=== PATIENT | male | born 1975 | race Caucasian/White ===

== ENCOUNTER 2021-08-14 16:36 | Emergency (ER) | payer OTHER ==
[2021-08-14] MEDS ORDERED: Acetaminophen 325 MG Tab PO ONE (18:16)
[2021-08-14] MEDS ORDERED: Dexamethasone 6 MG TABLET PO ONE (18:16)
[2021-08-14] MEDS ORDERED: Albuterol 6.7 GM Inhaler INH ONE ×2 (18:16→21:50)
[2021-08-14] MEDS ORDERED: Dexamethasone 4 MG Tab ONE (18:47)
--- NOTE | 2021-08-14 19:37 | EDM.PDOC ---
ED HPI GENERAL MEDICAL PROBLEM - General Chief Complaint: Respiratory Problem Stated Complaint: COVID +/ TEMP 104 Time Seen by Provider: 08/14/21 17:42 Source of Information: Reports: Patient, RN Notes Reviewed History Limitations: Reports: No Limitations - History of Present Illness INITIAL COMMENTS - FREE TEXT/NARRATIVE: Patient is a 45-year-old male presenting to the emergency department complaints of Covid symptoms. He reports fever, chills, cough, congestion, nausea, diarrhea, and decreased appetite. He is approximately 7 days into his illness. He took ibuprofen around noon today. At that time his temp was 102.4. He then took a nap and upon waking temperature was 103, therefore he came to the ER. He has not taken any [id number] Tylenol. He denies any chronic medical conditions. He is scheduled to have a monoclonal antibody infusion tomorrow. Headache Pain Score (Numeric/FACES): 6 - Related Data Allergies Allergy/AdvReac Type Severity Reaction Status Date / Time No Known Allergies Allergy Verified 08/14/21 18:00 Home Meds: Home Meds dexAMETHasone [Decadron] 6 mg PO DAILY #4 tablet 08/14/21 [Rx] Past Medical History Psychiatric History: Reports: Addiction - Infectious Disease History Infectious Disease History: Reports: Novel Coronavirus Social & Family History - Family History Family Medical History: No Pertinent Family History - Tobacco Use Tobacco Use Status *Q: Current Every Day Tobacco User Years of Tobacco use: 35 Packs/Tins Daily: 0.5 - Caffeine Use Caffeine Use: Reports: Coffee - Recreational Drug Use Recreational Drug Use: Yes Drug Use in Last 12 Months: Yes Recreational Drug Type: Reports: Methamphetamine Recreational Drug Use Frequency: Not Used In Over 5 Months ED ROS GENERAL - Review of Systems Review Of Systems: See Below Constitutional: Reports: Fever, Chills, Fatigue, Decreased Appetite HEENT: Reports: Sinus Problem (Congestion) Respiratory: Reports: Shortness of Breath, Pleuritic Chest Pain, Cough Cardiovascular: Reports: No Symptoms Endocrine: Reports: No Symptoms GI/Abdominal: Reports: Abdominal Pain, Diarrhea, Decreased Appetite, Nausea : Reports: No Symptoms Musculoskeletal: Reports: No Symptoms Skin: Reports: No Symptoms Neurological: Reports: Headache Psychiatric: Reports: No Symptoms Hematologic/Lymphatic: Reports: No Symptoms Immunologic: Reports: No Symptoms ED EXAM, GENERAL - Physical Exam Exam: See Below Exam Limited By: No Limitations General Appearance: Alert, WD/WN, No Apparent Distress Respiratory/Chest: No Respiratory Distress, No Accessory Muscle Use, Chest Non- Tender, Wheezing (Scattered expiratory) Cardiovascular: Normal Peripheral Pulses, Regular Rate, Rhythm, No Edema, No Gallop, No JVD, No Murmur, No Rub GI/Abdominal: Normal Bowel Sounds, Soft, Non-Tender, No Organomegaly, No Distention, No Abnormal Bruit, No Mass Neurological: Alert, Oriented, CN II-XII Intact, Normal Cognition, Normal Gait, Normal Reflexes, No Motor/Sensory Deficits Psychiatric: Normal Affect, Normal Mood Skin Exam: Warm, Dry, Intact, Normal Color, No Rash #1 Interpretation EKG Date: 08/14/21 Time: 18:05 Rhythm: NSR Rate (Beats/Min): 100 [place]: Normal P-Wave: Present QRS: Normal ST-T: Normal QT: Normal Course - Vital Signs Last Recorded V/S: Last Vital Signs Temp 102.2 F H 08/14/21 18:54 Pulse 95 08/14/21 17:30 Resp 20 08/14/21 17:30 BP 146/59 H 08/14/21 17:30 Pulse Ox 96 08/14/21 21:55 - Orders/Labs/Meds Orders: Active Orders 24 hr Category Date Time Status RT Post Treatment Assessment [RC] Click to Edit Care 08/14/21 18:16 Active RT Pre-Treatment Assessment [RC] Click to Edit Care 08/14/21 18:16 Active Vital Signs [RC] Q15M Care 08/14/21 19:50 Active EPINEPHrine [Adrenalin] Med 08/14/21 19:50 Active 0.3 mg IM ASDIRECTED PRN Famotidine [Pepcid] Med 08/14/21 19:50 Active 20 mg IVPUSH ASDIRECTED PRN Sodium Chloride 0.9% [Saline Flush] Med 08/14/21 20:00 Active 30 ml FLUSH ASDIRECTED diphenhydrAMINE [Benadryl] Med 08/14/21 19:50 Active 50 mg IVPUSH ASDIRECTED PRN methylPREDNISolone Sod Succ [Solu-MEDROL] Med 08/14/21 19:50 Active 125 mg IVPUSH ASDIRECTED PRN Medication Orders Diphenhydramine HCl (Diphenhydramine 50 Mg/Ml Sdv) 50 mg IVPUSH ASDIRECTED PRN PRN Reason: hypersensitivity reaction Epinephrine HCl (Epinephrine 1 Mg/Ml Sdv) 0.3 mg IM ASDIRECTED PRN PRN Reason: hypersensitivity reaction Famotidine (Famotidine 20 Mg/2 Ml Sdv) 20 mg IVPUSH ASDIRECTED PRN PRN Reason: hypersensitivity reaction Methylprednisolone Sodium Succinate (Methylprednisolone Sodium Succinate 125 Mg/2 Ml Sdv) 125 mg IVPUSH ASDIRECTED PRN PRN Reason: hypersensitivity reaction Sodium Chloride (Sodium Chloride 0.9% 10 Ml Syringe) 30 ml FLUSH ASDIRECTED ATA Last Admin: 08/14/21 22:22 Dose: 30 ml Documented by: KAVITA Labs: Laboratory Tests 08/14/21 08/14/21 08/14/21 Range/Units 18:21 18:21 18:21 WBC 5.64 (4.23-9.07) K/mm3 RBC 5.60 (4.63-6.08) M/mm3 Hgb 15.6 (13.7-17.5) gm/dl Hct 46.7 (40.1-51.0) % MCV 83.4 (79.0-92.2) fl MCH 27.9 (25.7-32.2) pg MCHC 33.4 (32.2-35.5) g/dl RDW Std Deviation 41.9 (35.1-43.9) fL Plt Count 193 (163-337) K/mm3 MPV 9.9 (9.4-12.3) fl Neut % (Auto) 66.4 (34.0-67.9) % Lymph % (Auto) 15.1 L (21.8-53.1) % Hunt % (Auto) 17.9 H (5.3-12.2) % Eos % (Auto) 0 L (0.8-7.0) Baso % (Auto) 0.4 (0.1-1.2) % Neut # (Auto) 3.75 (1.78-5.38) K/mm3 Lymph # (Auto) 0.85 L (1.32-3.57) K/mm3 Hunt # (Auto) 1.01 H (0.30-0.82) K/mm3 Eos # (Auto) 0.00 L (0.04-0.54) K/mm3 Baso # (Auto) 0.02 (0.01-0.08) K/mm3 D-Dimer, Quantitative 0.47 (0.19-0.50) mg/L Sodium 134 L (136-145) mEq/L Potassium 4.1 (3.5-5.1) mEq/L Chloride 98 (98-107) mEq/L Carbon Dioxide 28 (21-32) mEq/L Anion Gap 12.1 (5-15) BUN 18 (7-18) mg/dL Creatinine 1.0 (0.7-1.3) mg/dL Est Cr Clr Drug Dosing 91.32 mL/min Estimated GFR (MDRD) > 60 (>60) mL/min BUN/Creatinine Ratio 18.0 (14-18) Glucose 105 H (70-99) mg/dL Calcium 9.0 (8.5-10.1) mg/dL Total Bilirubin 0.5 (0.2-1.0) mg/dL AST 29 (15-37) U/L ALT 51 (16-63) U/L Alkaline Phosphatase 72 (46-116) U/L C-Reactive Protein 3.2 H* (<1.0) mg/dL Total Protein 8.0 (6.4-8.2) g/dl Albumin 3.8 (3.4-5.0) g/dl Globulin 4.2 gm/dL Albumin/Globulin Ratio 0.9 L (1-2) Meds: Medications Generic Name Dose Route Start Last Admin Trade Name Freq PRN Reason Stop Dose Admin Diphenhydramine HCl 50 mg 08/14/21 19:50 Diphenhydramine 50 Mg/Ml Sdv IVPUSH ASDIRECTED PRN hypersensitivity reaction Epinephrine HCl 0.3 mg 08/14/21 19:50 Epinephrine 1 Mg/Ml Sdv IM ASDIRECTED PRN hypersensitivity reaction Famotidine 20 mg 08/14/21 19:50 Famotidine 20 Mg/2 Ml Sdv IVPUSH ASDIRECTED PRN hypersensitivity reaction Methylprednisolone Sodium Succinate 125 mg 08/14/21 19:50 Methylprednisolone Sodium Succinate 125 Mg/2 Ml Sdv IVPUSH ASDIRECTED PRN hypersensitivity reaction Sodium Chloride 30 ml 08/14/21 20:00 08/14/21 22:22 Sodium Chloride 0.9% 10 Ml Syringe FLUSH 30 ml ASDIRECTED ATA Administration Discontinued Medications Generic Name Dose Route Start Last Admin Trade Name Gaby PRN Reason Stop Dose Admin Acetaminophen 975 mg 08/14/21 18:16 08/14/21 18:54 Acetaminophen 325 Mg Tab PO 08/14/21 18:17 975 mg NOW ONE Administration Albuterol 0 gm 08/14/21 18:16 08/14/21 21:54 Albuterol 6.7 Gm Inhaler INH 08/14/21 18:17 2 puff ONETIME ONE Administration Albuterol Confirm 08/14/21 21:50 Albuterol 6.7 Gm Inhaler Administered 08/14/21 21:51 Dose 6.7 gm INH .STK-MED ONE Dexamethasone 6 mg 08/14/21 18:16 08/14/21 18:55 Dexamethasone 6 Mg Tablet PO 08/14/21 18:17 6 mg ONETIME ONE Administration Dexamethasone Confirm 08/14/21 18:47 08/14/21 18:55 Dexamethasone 4 Mg Tab Administered 08/14/21 18:48 Not Given Dose 8 mg .ROUTE .STK-MED ONE CASIRIVIMAB/IMDEVIMAB 10 ml/ 110 mls @ 220 mls/hr 08/14/21 19:50 08/14/21 20:37 Sodium Chloride IV 08/14/21 20:19 220 mls/hr ONETIME ONE Administration - Re-Assessments/Exams Free Text/Narrative Re-Assessment/Exam: Patient is a 45-year-old male presenting to the emergency department for evaluation of Covid symptoms. Patient reports his most bothersome symptom is his fever. Took ibuprofen around noon today but states that he continues to be febrile. He has not taken any Tylenol. On exam, patient does have diffuse expiratory wheezing throughout his lung tapia. Oxygen saturation is 95% on room air. I have ordered blood work, chest x-ray, EKG, dexamethasone, Tylenol, and albuterol inhaler. I spoke with patient to provide information about Regeneron treatment for patient I offered them the ``Patient and Caregiver EUA Regeneron Fact Sheet to read and review I stated the drug has been approved by an emergency use authorization (EUA) process and has not fully been FDA reviewed or approved The patient meets the EUA requirements I discussed there are other potential treatment options that are currently not FDA approved to treat COVID-19. Offered opportunity to ask questions and all questions were answered Patient voiced understanding and agreed to proceed with treatment for patient. 08/14/21 21:38 Hematology is overall unremarkable. Chest x-ray shows findings consistent with wild Covid pneumonia. Patient has completed the monoclonal antibody infusion without adverse event and is currently completing his waiting period. He will be sent home with albuterol inhaler. I also sent prescription for dexamethasone for the next 4 days. Recommend routine Tylenol and ibuprofen. Discharge instructions as documented. Departure - Departure Time of Disposition: 21:43 Disposition: Home, Self-Care 01 Condition: Good Clinical Impression: Pneumonia due to COVID-19 virus - Discharge Information *PRESCRIPTION DRUG MONITORING PROGRAM REVIEWED*: No *COPY OF PRESCRIPTION DRUG MONITORING REPORT IN PATIENT HYACINTH: No Prescriptions: dexAMETHasone [Decadron] 6 mg PO DAILY #4 tablet Instructions: COVID-19 Referrals: Susan Cole, [employer] [Primary Care Provider] - Forms: ED Department Discharge Additional Instructions: Take the dexamethasone as prescribed starting tomorrow evening. First dose was given in ER. Use 2 puffs of the albuterol inhaler as needed for wheezing and shortness of breath. Use Tylenol 650 mg every 4 hours or ibuprofen 6 mg every 6 hours as needed for fever and body aches. Ensure that you are not taking more than 4000 mg of Tylenol or 3200 mg of ibuprofen in a 24-hour period. If you should experience any new or worsening symptoms, please not hesitate to return to the emergency department for reevaluation. Sepsis Event Note (ED) - Evaluation Sepsis Screening Result: No Definite Risk - Focused Exam Vital Signs: Vital Signs Temp Temp Pulse Resp BP Pulse Ox Pulse Ox 08/14/21 21:55 96 08/14/21 18:54 102.2 F H 08/14/21 17:30 102.2 F H 95 20 146/59 H 95 - My Orders Last 24 Hours: My Active Orders 08/14/21 18:16 RT Post Treatment Assessment [RC] Click to Edit RT Pre-Treatment Assessment [RC] Click to Edit 08/14/21 19:50 Vital Signs [RC] Q15M EPINEPHrine [Adrenalin] 0.3 mg IM ASDIRECTED PRN Famotidine [Pepcid] 20 mg IVPUSH ASDIRECTED PRN diphenhydrAMINE [Benadryl] 50 mg IVPUSH ASDIRECTED PRN methylPREDNISolone Sod Succ [Solu-MEDROL] 125 mg IVPUSH ASDIRECTED PRN 08/14/21 20:00 Sodium Chloride 0.9% [Saline Flush] 30 ml FLUSH ASDIRECTED - Assessment/Plan Last 24 Hours: My Active Orders 08/14/21 18:16 RT Post Treatment Assessment [RC] Click to Edit RT Pre-Treatment Assessment [RC] Click to Edit 08/14/21 19:50 Vital Signs [RC] Q15M EPINEPHrine [Adrenalin] 0.3 mg IM ASDIRECTED PRN Famotidine [Pepcid] 20 mg IVPUSH ASDIRECTED PRN diphenhydrAMINE [Benadryl] 50 mg IVPUSH ASDIRECTED PRN methylPREDNISolone Sod Succ [Solu-MEDROL] 125 mg IVPUSH ASDIRECTED PRN 08/14/21 20:00 Sodium Chloride 0.9% [Saline Flush] 30 ml FLUSH ASDIRECTED
--- NOTE | 2021-08-14 19:42 | CR ---
Chest: Frontal view of the chest was obtained. Comparison: No prior chest imaging is available. Slight parenchymal densities are seen along the periphery of both sides of the chest. Heart size and mediastinum are normal. Bony structures show nothing acute. Impression: 1. Slight parenchymal densities along the periphery of both lungs compatible with mild COVID pneumonia. 2. No additional abnormality is appreciated. Diagnostic code #3
[2021-08-14] MEDS ORDERED: methylPREDNISolone Sodium Succinate 125 MG/2 ML SDV IVPUSH PRN (19:50)
[2021-08-14] MEDS ORDERED: Famotidine 20 MG/2 ML SDV IVPUSH PRN (19:50)
[2021-08-14] MEDS ORDERED: diphenhydrAMINE 50 MG/ML SDV IVPUSH PRN (19:50)
[2021-08-14] MEDS ORDERED: EPINEPHrine 1 MG/ML SDV IM PRN (19:50)
[2021-08-14] MEDS ORDERED: Sodium Chloride 0.9% 10 ML Syringe FLUSH SCH (20:00)
== END 2021-08-14 22:20 | disposition home or self-care (01) ==
LOC: JD.ED 16:36
DX: U07.1 COVID-19 (principal); J12.82 Pneumonia due to coronavirus disease 2019; Z72.0 Tobacco use
CPT/HCPCS: 36415; 71045; 71045-26; 80053; 85025; 85379; 86140; 93005; 94640; 99284-25; A9270-GY; M0243; Q0243